=== PATIENT | female | born 1960 | race Caucasian/White ===

== ENCOUNTER → 2016-10-01 | Outpatient (CLI) | payer OTHER ==
[~2016-10-01] MED LIST: ACETAMINOPHEN PO; ATENOLOL PO; CAPOZIDE PO; CELEXA PO; DIAZEPAM PO; DOXYCYCLINE PO; HCTZ PO; KEPPRA750 MG PO; LISINOPRIL PO; PRAVACHOL PO; SYNTHROID PO
--- NOTE | ~2016-10-01 | US6 ---
[facility] A Service of [facility] & [facility] RADIOLOGY TEXT RESULTS PATIENT: GARCIA VELASCO LOCATION: [facility] : 62 UNIT #: [id number] AGE: [address]: Grecia Ch SEX: F ORDER DR: [id number] [address] [address] [id number] O MR#: [id number] Acc #: [id number] NAME: GARCIA VELASCO : 1960 SEX: F STUDY DATE/TIME: 10/01/2016 8:14 UNIT: SG ROOM: STUDY DESCRIPTION: US Abdominal Limited Attending Physician: Grecia Ch A.P.R.N. Referring Physician: Grecia Ch A.P.R.N. Ordering Physician: Grecia Ch A.P.R.N. Primary Care Physician: Grecia Ch A.P.R.N. MEDICAL IMAGING REPORT This report is preliminary unless electronic signature is present. EXAM Right groin ultrasound INDICATION Right groin pain for 1 month. The patient reports there has been a palpable area in the right groin for 1 months. She states when lifting heavy things at work, the pain increased. TECHNIQUE Clemente-scale color Doppler sonographic images were obtained through the area of concern. FINDINGS This patient has a hypoechoic structure seen within the area of concern, measuring up to 3.9 x 1.2 x 5.0 cm. No bowel is seen within it, and it is separate from the patient's common femoral artery and vein. IMPRESSION Hypoechoic structure favored to be fluid in density, and seen within the area concern. It measures up to 5.0 x 3.9 x 1.2 cm and is indeterminate on the basis of this examination. Further evaluation with CT is recommended. Dictated by... Liliana Bruce M.D. THIS IS AN ELECTRONICALLY VERIFIED REPORT Liliana Bruce M.D. at 10/02/2016 4:46 AM AFF/ea [facility] A Service of [facility] & [facility] RADIOLOGY TEXT RESULTS PATIENT: GARCIA VELASCO LOCATION: [facility] : 62 UNIT #: [id number] AGE: [address]: Grecia Ch SEX: F ORDER DR: TD: 10/02/2016 01:00 JOB #: [id number] MEDICAL IMAGING REPORT Page 1 of 1
== END | disposition home or self-care (01) ==
LOC: SGUS 07:51
DX: R10.30 Lower abdominal pain, unspecified (principal)
CPT/HCPCS: 76705

== ENCOUNTER → 2016-10-25 | Outpatient (CLI) | payer OTHER ==
--- NOTE | ~2016-10-25 | CT2 ---
[facility] A Service of [facility] & [facility] RADIOLOGY TEXT RESULTS PATIENT: GARCIA VELASCO LOCATION: [facility] : 62 UNIT #: [id number] AGE: [address]: Grecia Ch SEX: F ORDER DR: [id number] [address] [address] [id number] O MR#: [id number] Acc #: [id number] NAME: GARCIA VELASCO : 1960 SEX: F STUDY DATE/TIME: 10/25/2016 9:58 UNIT: [facility] ROOM: STUDY DESCRIPTION: CT Abd and Pelv W Cont Attending Physician: Grecia Ch A.P.R.N. Referring Physician: Grecia Ch A.P.R.N. Ordering Physician: Grecia Ch A.P.R.N. Primary Care Physician: Grecia Ch A.P.R.N. MEDICAL IMAGING REPORT This report is preliminary unless electronic signature is present. EXAM CT abdomen and pelvis with contrast INDICATIONS Low abdominal pain for [address] scan of the abdomen and pelvis was performed following the administration of oral and IV contrast. Coronal and sagittal reformatted images were obtained. This CT exam was performed with one or more of the following radiation dose reduction techniques: automatic exposure control, adjustment of mA and/or kV according to patient size, and iterative reconstruction. EXAM No comparisons available. FINDINGS Lung bases are clear. Liver, gallbladder and spleen are unremarkable. Multiple renal cysts. Adrenal glands are unremarkable. The pancreas is unremarkable. Pelvis: There is a fat-containing hernia within the right groin and with a small amount of overlying adjacent fluid. There is some stranding within the hernia sac. The hernia projects laterally and I believe it most likely represents a femoral hernia. No evidence of any bowel contents within the hernia. The colon is unremarkable. The appendix is normal. No free fluid. The bone windows are unremarkable. IMPRESSION There is a fat-containing hernia with overlying fluid and some stranding within the fat located in the right groin which I believe is probably a femoral hernia and it may certainly account for the patient's symptoms. [facility] A Service of [facility] & [facility] RADIOLOGY TEXT RESULTS PATIENT: GARCIA VELASCO LOCATION: [facility] : 62 UNIT #: [id number] AGE: [address]: Grecia Ch SEX: F ORDER DR: Dictated by... Luis Hernandez M.D. THIS IS AN ELECTRONICALLY VERIFIED REPORT Luis Hernandez M.D. at 10/26/2016 4:39 PM ARS/to TD: 10/25/2016 17:50 JOB #: [id number] MEDICAL IMAGING REPORT Page 1 of 1
[2016-10-25 08:50] LABS: POC - CREATININE 0.77 mg/dL (0.44-1.03); POC - GFR >60.0 mL/min (>60)
== END | disposition home or self-care (01) ==
LOC: SCT 08:21
PROVIDERS: Nurse Practitioner Family
DX: R10.30 Lower abdominal pain, unspecified (principal); K46.9 Unspecified abdominal hernia without obstruction or gangrene
CPT/HCPCS: 74177; 82565; Q9967